=== PATIENT | female | born 1950 | race African-American/Black ===

== ENCOUNTER 2019-04-02 01:29 | Emergency (ER) | payer MEDICARE, OTHER ==
[2019-04-02] MEDS ORDERED: PENICILLIN V POTASSIUM 500 MG TABLET PO ONE (03:46)
[2019-04-02] MEDS ORDERED: OXYCODONE-ACETAMINOPHEN 5-325 MG TABLET PO ONE (03:46)
--- NOTE | 2019-04-02 03:53 | ER Document Report ---
HPI - HPI Time Seen by Provider: 04/02/19 03:38 Pain Level: 5 Context: Patient is a 68-year-old female that comes to the emergency department for chief complaint of oral pain. She states she has 2 problems, first problem is she has a broken tooth on the right lower aspect that has been increasingly hurting over the past week with sensation of swelling over the right side of her face/jaw. Second problem is she had a denture piece with paste that she placed on her u pper teeth, she states that she had trouble getting the plate off and after she took it off it felt sore in the area. She had used a paste to keep it in place. She denies sore throat, neck pain, fever/chills, or any other complaints at this time. She does have a dentist and is waiting to go to them again. Past Medical History - General Information source: Patient - Social History Smoking Status: Never Smoker Frequency of alcohol use: None Drug Abuse: None Lives with: Family Family History: Reviewed & Not Pertinent Patient has suicidal ideation: No Patient has homicidal ideation: No - Past Medical History Cardiac Medical History: Reports: Hx Hypertension Endocrine Medical History: Reports: Hx Diabetes Mellitus Type 2 - Immunizations Immunizations up to date: Yes Hx Diphtheria, Pertussis, Tetanus Vaccination: Yes Vertical Provider Document - CONSTITUTIONAL General Appearance: WD/WN, No Apparent Distress - INFECTION CONTROL TRAVEL OUTSIDE OF THE [place] IN LAST 30 DAYS: No - HEENT HEENT: Atraumatic, Normocephalic, PERRLA. negative: Conjuctival Injection, Pha ryngeal Exudate, Pharyngeal Tenderness, Pharyngeal Erythema, Tympanic Membrane Red, Tympanic Membrane Bulging Mouth Diagram: 1 - Dental caries with surrounding erythema of the gumline, widespread dental decay, upper dentures, unremarkable oropharyngeal exam otherwise - NECK Neck: Normal Inspection. negative: Lymphadenopathy-Left, Lymphadenopathy-Right - RESPIRATORY Respiratory: Breath Sounds Normal, No Respiratory Distress - CARDIOVASCULAR Cardiovascular: Regular Rate, Regular Rhythm - GI/ABDOMEN Gastrointestinal: Abdomen Soft, Abdomen Non-Tender - BACK Back: Normal Inspection - MUSCULOSKELETAL/EXTREMETIES Musculoskeletal/Extremeties: LUBNA, DANA, Non-Tender - NEURO Level of Consciousness: Awake, Alert, Appropriate - DERM Integumentary: Warm, Dry, No Rash Course - Re-evaluation Re-evalutation: Exam is consistent with dental infection, soft palate is unremarkable, hard palate unremarkable, no abscess seen, unremarkable exam otherwise. Starting any antibiotics, she already has dental follow-up, discussed return precautions. Patient states understanding and agreement. - Vital Signs Vital signs: Temp Pulse Resp BP Pulse Ox 99.0 F 97 16 195/99 H 97 04/02/19 01:36 04/02/19 01:36 04/02/19 01:36 04/02/19 01:36 04/02/19 01:36 Discharge - Discharge Clinical Impression: Mouth pain, Dental infection Condition: Stable Disposition: HOME, SELF-CARE Additional Instructions: Your evaluation is consistent with a dental infection. Take the antibiotics as prescribed, follow close with your dentist for additional management or this will continue to happen. Come back if you are worse including swelling of the face. Prescriptions: Penicillin V Potassium [Penicillin Vk 500 mg Tablet] 500 mg PO BID #20 tablet Forms: Return to Work
[2019-04-02 04:20] VITALS: BP 168/92
== END 2019-04-02 04:20 | disposition home or self-care (01) ==
LOC: ER 01:29
DX: K04.7 Periapical abscess without sinus (principal); K02.9 Dental caries, unspecified; K08.89 Other specified disorders of teeth and supporting structures; I10 Essential (primary) hypertension; E11.9 Type 2 diabetes mellitus without complications; Z97.2 Presence of dental prosthetic device (complete) (partial)
CPT/HCPCS: A9270 ×2

== ENCOUNTER 2019-05-26 02:32 | Emergency (ER) | payer MEDICARE, MEDICAID ==
[2019-05-26] MEDS ORDERED: METOCLOPRAMIDE HCL INJ/PF 10 MG/2 ML SDV IV ONE (04:11)
[2019-05-26] MEDS ORDERED: NORMAL SALINE 1000 ML 1,000 ML IV ONE (04:13)
--- NOTE | 2019-05-26 04:13 | ER Document Report ---
ED General - General Chief Complaint: Nausea/Vomiting/Diarrhea Stated Complaint: NAUSEA VOMITING DIARRHEA Time Seen by Provider: 05/26/19 04:05 Mode of Arrival: Medic Information source: Patient TRAVEL OUTSIDE OF THE [place] IN LAST 30 DAYS: No - HPI Onset: Other - Today Onset/Duration: Sudden Quality of pain: No pain Severity: Moderate Pain Level: Denies Associated symptoms: Diarrhea, Nausea, Vomiting Exacerbated by: Food Relieved by: Denies Similar symptoms previously: No Recently seen / treated by doctor: No Notes: 68 year old female with a history of HTN and DM here for nausea, vomiting, and diarrhea in the setting of eating some homemade soup which she reheated. The patient denies fevers but she has had some chills and sweats. The patient denies blood in her stool or vomit. The patient has no abdominal pain. The patient has had her gallbladder removed in the past. - Related Data Allergies/Adverse Reactions: No Known Allergies Allergy (Verified 04/02/19 02:32) Home Medications: Proair, Losartan, Flexeril, Carvidelol, AMlodipine, HCTZ, Provastatin, ASA, Metformin, Januvia Past Medical History - Social History Smoking Status: Never Smoker Chew tobacco use (# tins/day): No Frequency of alcohol use: None Drug Abuse: None Family History: Reviewed & Not Pertinent Patient has suicidal ideation: No Patient has homicidal ideation: No - Past Medical History Cardiac Medical History: Reports: Hx Hypertension Pulmonary Medical History: Reports: None EENT Medical History: Reports: None Neurological Medical History: Reports: None Endocrine Medical History: Reports: Hx Diabetes Mellitus Type 2 Renal/ Medical History: Reports: None Malignancy Medical History: Reports: None Musculoskeletal Medical History: Reports None Psychiatric Medical History: Reports: None Traumatic Medical History: Reports: None Infectious Medical History: Reports: None Past Surgical History: Reports: None - Immunizations Immunizations up to date: Yes Hx Diphtheria, Pertussis, Tetanus Vaccination: Yes Review of Systems - Review of Systems Constitutional: No symptoms reported EENT: No symptoms reported Cardiovascular: No symptoms reported Respiratory: No symptoms reported Gastrointestinal: Diarrhea, Nausea, Vomiting Genitourinary: No symptoms reported Female Genitourinary: No symptoms reported Musculoskeletal: No symptoms reported Skin: No symptoms reported Hematologic/Lymphatic: No symptoms reported Neurological/Psychological: No symptoms reported Physical Exam - Vital signs Vitals: Temp Pulse Resp BP Pulse Ox 99.3 F 106 H 18 152/85 H 97 05/26/19 02:48 05/26/19 02:48 05/26/19 02:48 05/26/19 02:48 05/26/19 02:48 - Notes Notes: GENERAL: Well-appearing, well-nourished and in no acute distress. HEAD: Atraumatic, normocephalic. EYES: Pupils equal round and reactive to light, extraocular movements intact, sclera anicteric, conjunctiva are normal. ENT: Nares patent, oropharynx clear without exudates. Moist mucous membranes. NECK: Normal range of motion, supple without lymphadenopathy or JVD. LUNGS: Breath sounds clear to auscultation bilaterally and equal. No wheezes rales or rhonchi. HEART: Regular rate and rhythm without murmurs, rubs or gallops. ABDOMEN: Soft, nontender, normoactive bowel sounds. No guarding, no rebound. No masses appreciated. EXTREMITIES: Normal range of motion, no pitting or edema. No clubbing or cyanosis. NEUROLOGICAL: Cranial nerves II through XII grossly intact. Normal speech, normal gait. PSYCH: Normal mood, normal affect. SKIN: Warm, Dry, normal turgor, no rashes or lesions noted. Course - Re-evaluation Re-evalutation: 05/26/19 05:55 The patient is here for nausea, vomiting, and diarrhea which she thinks was caused by some reheated home made soup. The patient felt better after fluids and Reglan. Patient's UA is concerning for a UTI. Will culture urine and treat with Ciprofloxacin. 05/26/19 05:57 - Vital Signs Vital signs: Temp Pulse Resp BP Pulse Ox 98.7 F 108 H 20 169/90 H 94 05/26/19 04:30 05/26/19 04:30 05/26/19 04:30 05/26/19 04:30 05/26/19 04:30 - Laboratory Result Diagrams: 05/26/19 04:50 05/26/19 04:50 Laboratory results interpreted by me: 05/26/19 05/26/19 05/26/19 04:50 04:50 04:50 WBC 10.6 H RDW 14.9 H Carbon Dioxide 32 H Glucose 210 H AST 57 H Alkaline Phosphatase 160 H Urine Glucose (UA) 50 H Urine Blood SMALL H Urine Nitrite POSITIVE H Urine Urobilinogen 2.0 H Ur Leukocyte Esterase TRACE H Discharge - Discharge Clinical Impression: Nausea & vomiting Qualifiers: Vomiting type: unspecified Vomiting Intractability: unspecified Qualified Code(s): R11.2 - Nausea with vomiting, unspecified UTI (urinary tract infection) Qualifiers: Urinary tract infection type: site unspecified Hematuria presence: without hematuria Qualified Code(s): N39.0 - Urinary tract infection, site not specified Condition: Stable Disposition: HOME, SELF-CARE Instructions: Urinary Tract Infection, Child ([facility]), Diarrhea, Nonspecific ([facility]), Vomiting ([facility]) Additional Instructions: Take Ciprofloxacin as prescribed for a UTI. Use Zofran as needed for nausea. Follow up with your primary care doctor. Prescriptions: Ondansetron [Zofran Odt 4 mg Tablet] 4 mg PO Q8H PRN 5 Days #10 tab.rapdis PRN Reason:
[2019-05-26 05:08] LABS: ABSOLUTE MONOCYTES (AUTO) 0.4 10^3/uL (0.1-1.4); ABSOLUTE NEUT (AUTO) 8.2 10^3/uL (1.7-8.2); BASOPHILS % (AUTO) 0.1 % (0-2); EOSINOPHILS % (AUTO) 0.3 % (0-6); HEMOGLOBIN 12.5 g/dL (12.0-15.5); LYMPHOCYTES % (AUTO) 18.9 % (13-45); MEAN CORPUSCULAR HEMOGLOBIN 28.1 pg (27.0-33.4); MEAN CORPUSCULAR HGB CONC 32.9 g/dL (32.0-36.0); MEAN CORPUSCULAR VOLUME 86 fl (80-97); MONOCYTES % (AUTO) 3.9 % (3-13); PLATELET COUNT 282 10^3/uL (150-450); RED BLOOD COUNT 4.45 10^6/uL (3.72-5.28); RED CELL DISTRIBUTION WIDTH 14.9 % (11.5-14.0); SEGMENTED NEUTROPHILS % (AUTO) 76.8 % (42-78); TOTAL CELLS COUNTED % (AUTO) 100 %; WHITE BLOOD COUNT 10.6 10^3/uL (4.0-10.5)
[2019-05-26 05:21] LABS: ALKALINE PHOSPHATASE 160 U/L (38-126); ANION GAP 7 (5-19); ASPARTATE AMINO TRANSFERASE 57 U/L (14-36); BILIRUBIN,DIRECT 0.2 mg/dL (0.0-0.4); BILIRUBIN,TOTAL 0.5 mg/dL (0.2-1.3); BLOOD UREA NITROGEN 16 mg/dL (7-20); CALCIUM 9.7 mg/dL (8.4-10.2); CARBON DIOXIDE 32 mmol/L (22-30); CHLORIDE 103 mmol/L (98-107); GLUCOSE 210 mg/dL (75-110); POTASSIUM 4.9 mmol/L (3.6-5.0)
[2019-05-26 05:31] LABS: APPEARANCE,URINE SLIGHTLY-CLOUDY; BILIRUBIN,URINE NEGATIVE (NEGATIVE); COLOR,URINE YELLOW; GLUCOSE, URINE 50 mg/dL (NEGATIVE); KETONES,URINE NEGATIVE (NEGATIVE); LEUKOCYTE ESTERASE,URINE TRACE (NEGATIVE); NITRITE,URINE POSITIVE (NEGATIVE); PROTEIN,URINE NEGATIVE (NEGATIVE); URINE SPECIFIC GRAVITY 1.016
[2019-05-26 06:23] VITALS: BP 167/77
== END 2019-05-26 06:24 | disposition home or self-care (01) ==
LOC: ER 02:32
DX: N39.0 Urinary tract infection, site not specified (principal); R11.2 Nausea with vomiting, unspecified; R19.7 Diarrhea, unspecified; I10 Essential (primary) hypertension; E11.9 Type 2 diabetes mellitus without complications; Z90.49 Acquired absence of other specified parts of digestive tract
CPT/HCPCS: 99284; 96361; 96374; 36415; 87086; 83690; 85025; 87088; 80053; 81001; 87186; J2765; J7030